=== PATIENT | male | born 1975 | race Caucasian/White ===

== ENCOUNTER 2017-07-22 16:23 | Observation (INO) ==
[2017-07-22] MEDS: PANTOPRAZOLE 40 MG VIAL IV SCH (18:09)
[2017-07-22] MEDS: ACETAMINOPHEN 325 MG TABLET PO PRN (18:10)
[2017-07-22] MEDS: LACTATED RINGERS 1,000 ML IV SCH (18:10)
[2017-07-22] MEDS ORDERED: DOCUSATE SODIUM 100 MG CAPSULE PO SCH (21:00)
[2017-07-22] MEDS: ONDANSETRON 4 MG/2 ML VIAL IV PRN (21:12)
[2017-07-22 21:37] LABS: Apearance,Urine CLEAR (Clear); Bacteria,Urine Occasional /HPF (Few); Bilirubin,Urine Negative (Negative); Blood, Urine Small mg/dL (Negative); Glucose,Urine (UA) Negative (Negative); Hyaline Casts,Urine 1 /LPF (0-3); Ketones,Urine Negative (Negative); Mucus,Urine Few /LPF (Occasional); Nitrite,Urine Negative (Negative); Protein,Urine Negative; Urine Color Yellow (Yellow); Urine Specific Gravity 1.009 (1.001-1.035); Urine Urobilinogen < 2.0 EU/DL (0.2-1.0); WBC,Urine <1 /HPF (0-6)
[2017-07-22 22:11] LABS: Barbiturates Screen,Urine Negative (Negative); Benzodiazepines Screen,Urine Negative (Negative); Cannabinoid Screen,Urine Negative (Negative); Opiate Screen,Urine Negative (Negative); Phencyclidine Screen,Urine Negative (Negative)
[2017-07-23] MEDS: LACTATED RINGERS 1,000 ML IV SCH ×3 (02:03→20:01)
[2017-07-23] MEDS: ONDANSETRON 4 MG/2 ML VIAL IV PRN ×3 (06:36→22:40)
[2017-07-23 08:26] LABS: Basophils # 0.1 10*3/uL (0.0-0.2); Basophils % 0.5 % (0.0-0.8); Eosinophils % 0.3 % (0.00-10.9); Hematocrit 43.8 VOL% (42.0-52.0); Hemoglobin 15.3 GM/DL (14.0-18.0); Immature Granulocytes % 0.5 %; Immature Granulocytes Absolute 0.06 #; Lymphocytes % 15.8 % (21.2-54.2); Mean Corpuscular HGB Conc 34.9 GM/DL (32-36); Mean Corpuscular Hemoglobin 31 PG (27-34); Mean Corpuscular Volume 88.8 FL (87-102); Neutrophils # 9.3 10*3/uL (1.4-7.4); Neutrophils % 74.9 % (38.7-73.9); Platelet Count 266 T/CUMM (130-400); Red Blood Count 4.93 MC/CUMM (3.8-5.5); Red Cell Distribution Width 12.3 % (9.3-17.3); White Blood Count 12.4 T/CUMM (4-12)
[2017-07-23 08:53] LABS: Albumin 3.7 G/DL (3.4-5.0); Bilirubin,Direct 0.37 MG/DL (0.0-0.20); Bilirubin,Indirect 1.3 MG/DL (0.0-1.0); Bilirubin,Total 1.7 MG/DL (0.2-1.0); Calcium 8.4 MG/DL (8.5-10.1); Osmolality,Calculated 272.7 MOS/KG (273-304); Potassium 4.1 MMOL/L (3.5-5.1); Total Protein 6.5 G/DL (6.4-8.3)
[2017-07-23] MEDS: MORPHINE 4 MG/1 ML VIAL IV PRN ×2 (08:54→15:50)
[2017-07-23] MEDS: PANTOPRAZOLE 40 MG VIAL IV SCH (08:55)
[2017-07-23] MEDS: ACETAMINOPHEN 325 MG TABLET PO PRN ×2 (11:32→20:00)
[2017-07-23] MEDS: traMADol 50 MG TABLET PO PRN (22:40)
[2017-07-24] MEDS: LACTATED RINGERS 1,000 ML IV SCH ×2 (04:02→12:23)
[2017-07-24] MEDS: traMADol 50 MG TABLET PO PRN (06:08)
[2017-07-24] MEDS: ONDANSETRON 4 MG/2 ML VIAL IV PRN ×2 (06:09→12:44)
[2017-07-24 07:15] LABS: Basophils # 0.1 10*3/uL (0.0-0.2); Basophils % 0.5 % (0.0-0.8); Eosinophils # 0.2 10*3/uL (0.0-0.87); Eosinophils % 1.8 % (0.00-10.9); Hematocrit 44.2 VOL% (42.0-52.0); Hemoglobin 14.9 GM/DL (14.0-18.0); Immature Granulocytes % 0.4 %; Immature Granulocytes Absolute 0.04 #; Lymphocytes # 2.6 10*3/uL (1.4-4.0); Lymphocytes % 25.4 % (21.2-54.2); Mean Corpuscular HGB Conc 33.7 GM/DL (32-36); Mean Corpuscular Hemoglobin 31 PG (27-34); Mean Corpuscular Volume 90.8 FL (87-102); Mean Platelet Volume 10.8 FL (9.6-12.0); Monocytes # 0.8 10*3/uL (0.11-0.8); Monocytes % 7.7 % (1.7-12.7); Neutrophils # 6.6 10*3/uL (1.4-7.4); Neutrophils % 64.2 % (38.7-73.9); Platelet Count 254 T/CUMM (130-400); Red Blood Count 4.87 MC/CUMM (3.8-5.5); Red Cell Distribution Width 12.4 % (9.3-17.3); White Blood Count 10.2 T/CUMM (4-12)
[2017-07-24 07:43] LABS: Albumin 3.3 G/DL (3.4-5.0); Bilirubin,Direct 0.28 MG/DL (0.0-0.20); Bilirubin,Total 1.3 MG/DL (0.2-1.0); Calcium 8.4 MG/DL (8.5-10.1); Osmolality,Calculated 273.5 MOS/KG (273-304); Potassium 4.5 MMOL/L (3.5-5.1); Total Protein 6.4 G/DL (6.4-8.3)
[2017-07-24] MEDS ORDERED: CETIRIZINE 10 MG TABLET PO SCH (09:00)
[2017-07-24] MEDS: PANTOPRAZOLE 40 MG VIAL IV SCH (10:25)
[2017-07-24 11:56] VITALS: BP 123/86
== END 2017-07-24 14:57 | disposition home or self-care (01) ==
LOC: N.5E → SUPCPDRO 17:18
PROVIDERS: ADMIT Family Medicine; ATTEND Family Medicine